=== PATIENT | female | born 1975 | race Caucasian/White ===

== ENCOUNTER 2018-05-26 16:18 | Emergency (ER) | payer OTHER, BC ==
[2018-05-26 17:07] VITALS: BP 151/79
[2018-05-26] MEDS ORDERED: Nitrofurantoin Monohydrate/Macrocrystalline 100 MG Cap PO ONE (18:02)
[2018-05-26] MEDS ORDERED: metroNIDAZOLE 250 MG Tab PO ONE (18:03)
[2018-05-26] MEDS ORDERED: Ondansetron 4 MG Tab.DIS PO ONE (18:03)
--- NOTE | 2018-05-26 18:06 | EDM.PDOC ---
Scribed by Ana Truong 05/26/18 [id number] for Ernesto Brock MD ED HPI GENERAL MEDICAL PROBLEM - General Chief Complaint: Back Pain or Injury Stated Complaint: BACK PAIN Time Seen by Provider: 05/26/18 16:57 Source of Information: Reports: Patient, RN, RN Notes Reviewed History Limitations: Reports: No Limitations - History of Present Illness INITIAL COMMENTS - FREE TEXT/NARRATIVE: Patient presents to ER with complaint of left flank pain and low back pain with chills and nausea that started yesterday. The pain does not radiate. History of UTI and kidney problems. Patient denies fever. She vomited this evening. She denies back injury or fall. She was seen at [facility] approximately a week ago for kidney testing at which time her urine was suspicious for any early UTI , but because she had no symptoms they did not treat it. Onset Date: 05/25/18 Duration: Getting Worse Location: Reports: Abdomen, Back, Other (flank) Quality: Reports: Ache Severity: Severe Improves with: Reports: None Worsens with: Reports: None Associated Symptoms: Reports: No Other Symptoms Left Lower Flank Pain Score (Numeric/FACES): 6 - Related Data Allergies Allergy/AdvReac Type Severity Reaction Status Date / Time No Known Allergies Allergy Verified 05/26/18 16:58 Home Meds: Home Meds DULoxetine [Cymbalta] 60 mg PO DAILY 05/26/18 [History] buPROPion HCl [Wellbutrin Xl] 300 mg PO DAILY 05/26/18 [History] Past Medical History - Past Health History Medical/Surgical History: Denies Medical/Surgical History ED ROS GENERAL - Review of Systems Review Of Systems: ROS reveals no pertinent complaints other than HPI. ED EXAM,LOWER BACK PAIN/INJURY - Physical Exam Exam: See Below Exam Limited By: No Limitations General Appearance: Alert, WD/WN, No Apparent Distress Eye Exam: Bilateral Eye: Normal Inspection Nose: Normal Inspection, Normal Mucosa, No Blood Throat/Mouth: Normal Inspection, Normal Lips, Normal Teeth, Normal Gums, Normal Oropharynx, Normal Voice, No Airway Compromise Head: Atraumatic, Normocephalic Neck: Normal Inspection Respiratory/Chest: No Respiratory Distress, Lungs Clear, Normal Breath Sounds, No Accessory Muscle Use, Chest Non-Tender Cardiovascular: Regular Rate, Rhythm GI/Abdominal: Normal Bowel Sounds, Soft, Non-Tender, No Organomegaly, No Distention, No Abnormal Bruit, No Mass (Female) Exam: Deferred Rectal (Female) Exam: Deferred Back Exam: Normal Inspection, Full Range of Motion, Other (non-tender to left CVA and flank palpation. ) Extremities: Normal Inspection Neurological: Alert, Normal Gait, No Motor/Sensory Deficits Psychiatric: Normal Affect, Normal Mood Skin Exam: Warm, Dry, Intact, Normal Color, No Rash Course - Vital Signs Last Recorded V/S: Last Vital Signs Temp 36.2 C 05/26/18 17:01 Pulse 95 05/26/18 17:01 Resp 20 05/26/18 17:01 BP 151/79 H 05/26/18 17:01 Pulse Ox 100 05/26/18 17:01 - Orders/Labs/Meds Orders: Active Orders 24 hr Category Date Time Status CULTURE URINE [RM] Stat Lab 05/26/18 16:58 Received Labs: Laboratory Tests 05/26/18 05/26/18 Range/Units 16:58 16:58 Urine Color Yellow (YELLOW) Urine Appearance Cloudy (CLEAR) Urine pH 6.0 (5.0-9.0) Ur Specific [place] 1.025 (1.005-1.030) Urine Protein Negative (NEGATIVE) Urine Glucose (UA) Negative (NEGATIVE) Urine Ketones Negative (NEGATIVE) Urine Occult Blood Large H (NEGATIVE) Urine Nitrite Negative (NEGATIVE) Urine Bilirubin Negative (NEGATIVE) Urine Urobilinogen 0.2 (0.2-1.0) mg/dL Ur Leukocyte Esterase Small H (NEGATIVE) Urine RBC 10-20 H /HPF Urine WBC 0-5 (0-5/HPF) /HPF Ur Epithelial Cells Many H /HPF Urine Bacteria Moderate H (0-FEW/HPF) /HPF Urine HCG, Qual Negative Meds: Medications Discontinued Medications Generic Name Dose Route Start Last Admin Trade Name Freq PRN Reason Stop Dose Admin Metronidazole 500 mg 05/26/18 18:03 Metronidazole PO 05/26/18 18:04 ONETIME ONE Nitrofurantoin Macrocrystals 100 mg 05/26/18 18:02 Macrobid PO 05/26/18 18:03 ONETIME ONE Ondansetron HCl 4 mg 05/26/18 18:03 Zofran Odt PO 05/26/18 18:04 ONETIME ONE Departure - Departure Time of Disposition: 18:03 Disposition: Home, Self-Care 01 Condition: Good Clinical Impression: Bacterial vaginosis UTI (urinary tract infection) Qualifiers: Urinary tract infection type: site unspecified Hematuria presence: without hematuria Qualified Code(s): N39.0 - Urinary tract infection, site not specified - Discharge Information *PRESCRIPTION DRUG MONITORING PROGRAM REVIEWED*: Not Applicable *COPY OF PRESCRIPTION DRUG MONITORING REPORT IN PATIENT KENNETH: Not Applicable Instructions: Urinary Tract Infection, Adult, Bacterial Vaginosis Forms: ED Department Discharge Additional Instructions: Rx: Macrobid 100mg Rx: Flagyl 500mg Rx: Zofran 4mg Follow up in clinic in 5 to 7 days for urine recheck. - My Orders Last 24 Hours: My Active Orders 05/26/18 16:58 CULTURE URINE [RM] Stat - Assessment/Plan Last 24 Hours: My Active Orders 05/26/18 16:58 CULTURE URINE [RM] Stat I have read and agree with the documentation that has been completed regarding this visit. By signing this record, I attest that the documentation was completed in my physical presence and is an accurate record of the encounter.
== END 2018-05-26 18:14 | disposition home or self-care (01) ==
LOC: DL.ED 16:18
DX: N76.0 Acute vaginitis (principal); N39.0 Urinary tract infection, site not specified
CPT/HCPCS: 81001; 81025; 87086; 99284; A9270

== ENCOUNTER 2021-07-23 14:36 | Emergency (ER) | payer OTHER ==
[2021-07-23] MEDS ORDERED: Nitrofurantoin Monohydrate/Macrocrystalline 100 MG Cap PO ONE (14:37)
[2021-07-23 14:52] VITALS: BP 131/78; PULSE 79
[2021-07-23] MEDS ORDERED: Nitrofurantoin Monohydrate/Macrocrystalline 100 MG Cap ONE (15:21)
== END 2021-07-23 15:26 | disposition home or self-care (01) ==
LOC: DL.ED 14:36
DX: N39.0 Urinary tract infection, site not specified (principal)
CPT/HCPCS: 81001; 87086; 87088; 87186; 99283; A9270-GY

== ENCOUNTER 2021-10-23 21:05 | Emergency (ER) | payer OTHER ==
[2021-10-23] MEDS ORDERED: Nitrofurantoin Monohydrate/Macrocrystalline 100 MG Cap PO ONE (21:06)
[2021-10-23] MEDS ORDERED: Sodium Chloride 0.9% 10 ML Syringe FLUSH PRN (21:33)
[2021-10-23 22:06] LABS: ANION GAP 13.9 mEq/L (7-13)
[2021-10-23 22:26] VITALS: PULSE 77
[2021-10-23] MEDS ORDERED: Iopamidol 612 MG/ML 100 ML Bottle IVPUSH ONE (22:36)
[2021-10-23 23:41] VITALS: BP 129/86
[2021-10-24] MEDS ORDERED: Nitrofurantoin Monohydrate/Macrocrystalline 100 MG Cap PO ONE (00:01)
== END 2021-10-24 00:16 | disposition home or self-care (01) ==
LOC: DL.ED 21:05
DX: N39.0 Urinary tract infection, site not specified (principal)
CPT/HCPCS: 36415; 74177; 80053; 81001; 81025; 83690; 85025; 87086; 99284-25; A9270-GY; Q9967